=== PATIENT | female | born 1980 | race Caucasian/White ===

== ENCOUNTER 2016-07-07 20:38 | Emergency (ER) | payer MEDICAID ==
[~2016-07-07 20:38] MED LIST: COLACE-DPS100 MG PO; LAN-O-SOOTHE7 GM TP; MOTRIN-DPS800 MG PO; NIPPLECREAM TP; PRENATAL VIT1 TAB PO; TYLENOL #3 DPS1 TAB PO
--- NOTE | 2016-07-08 06:07 | ER ---
ADMIT: 07/07/2016 RM/LOC: ER [facility] MR#: [id number] [address] [address] ERICA OLMEDO [address] [place] [address] Emergency Room Report SEX: F AGE: 36 : 1980 DATE: 07/07/2016 The patient is a 36-year-old female, status post tubal ligation 6 weeks ago, complains of lower abdominal left flank pain with nausea and diarrhea. Denies any hematochezia, fevers, chills, nausea, or vomiting. Exam remarkable for nontoxic, afebrile female. CT negative except for physiologic fluid. Normal CBC except hemoglobin 11.3, lactic 1.1, CRP 0.32, lipase 193. HCG negative. Urine; 2 wbc's, 3 rbc's, trace leukocyte esterase. The patient declined any pain medicine. Given a liter of fluid with improvement. Follow up Dr. Matamoros as needed. Janes Delarosa MD/ sara JOB #: [id number] CC: Janes Delarosa MD, Attending Physician Crystal Finnegan MD, Family Physician Doug Matamoros MD
== END 2016-07-07 23:38 | disposition home or self-care (01) ==
LOC: ER 20:38
DX: R10.32 Left lower quadrant pain (principal); Z88.8 Allergy status to other drugs, medicaments and biological substances; Z98.51 Tubal ligation status

== ENCOUNTER 2016-08-15 17:44 | Emergency (ER) | payer MEDICAID ==
--- NOTE | 2016-08-16 16:06 | ER ---
ADMIT: 08/15/2016 RM/LOC: ER [facility] MR#: [id number] [address] [address] ERICA OLMEDO [address] [place] [address] Emergency Room Report SEX: F AGE: 36 : 1980 DATE: 08/15/2016 SUBJECTIVE: The patient is a 36-year-old female, who presents to the emergency room complaining of a headache that she has had for about 3 days and dizziness. She says sense of movement feels like she is spinning around instead of bend the other way around. REVIEW OF SYSTEMS: She had her menses started today. PAST MEDICAL HISTORY: She has had a past medical history of anemia. She had a tubal ligation. MEDICATIONS: None. PHYSICAL EXAMINATION: GENERAL: Well looking, alert and oriented female. Afebrile. She does have some nasal congestion. Negative for adenopathy. Respirations, no distress. CVS: Tachycardic. ABDOMEN: Nontender. EXTREMITIES: No edema. SKIN: Good color and turgor. NEURO: Oriented x4. PSYCH: Mood and affect are appropriate. LABORATORY DATA: UA does have rbc's 18 and glucose 30 with a blood of 3+, but she admits to being on her period. Her hemoglobin is 11.6 with a hematocrit of 34.7. Potassium is 3.6, albumin is 3.3 with a calcium of 8.2. She was given Phenergan and Toradol, and she improved with such. She was given a prescription of meclizine to help with the vertigo. IMPRESSION: Upper respiratory infection with nasal congestion. Vertigo and headache. The patient was discharged. See T-sheet for instructions. WALKER Funez / Kaden Greer MD / sara JOB #: [id number] CC: Kaden Greer MD, Attending Physician Javier Flood MD, Family Physician
== END 2016-08-15 20:20 | disposition home or self-care (01) ==
LOC: ER 17:44
DX: R42 Dizziness and giddiness (principal); R51 Headache; J06.9 Acute upper respiratory infection, unspecified; D64.9 Anemia, unspecified; Z98.51 Tubal ligation status